=== PATIENT | female | born 1940 | race Caucasian/White ===

== ENCOUNTER 2021-07-20 17:35 | Emergency (ER) | payer MEDICARE, OTHER ==
[2021-07-20] MEDS ORDERED: traMADol HCl 50 MG TAB ONE (18:27)
== END 2021-07-20 19:32 | disposition home or self-care (01) ==
LOC: CSHERS 17:35
DX: S90.32XA Contusion of left foot, initial encounter (principal); J43.9 Emphysema, unspecified; M79.7 Fibromyalgia; X50.1XXA Overexertion from prolonged static or awkward postures, initial encounter; Z87.891 Personal history of nicotine dependence; Z87.19 Personal history of other diseases of the digestive system